=== PATIENT | female | born 1965 | race Caucasian/White ===

== ENCOUNTER 2019-01-20 09:39 | Outpatient (REF) | payer BC, OTHER, SELFPAY ==
[2019-01-20 19:37] LABS: ALT 32 U/L (12-78); AST 15 U/L (15-37); Albumin 3.5 g/dL (3.4-5.0); Alkaline Phosphatase 122 U/L (46-116); Anion Gap 12.5 mmol/L (3-11); BUN 13 mg/dL (7-18); Bilirubin, Total 0.4 mg/dL (0.2-1.0); CO2 23.5 mmol/L (21.0-32.0); CREATININE 0.69 mg/dL (0.55-1.02); Calcium 8.3 mg/dL (8.5-10.1); Chloride 104 mmol/L (98-107); Cholesterol 195 mg/dL (50-200); Glucose 208 mg/dL (70-100); HDL Cholesterol 35 mg/dL (40-60); LDL CHOLESTEROL 128 mg/dL (<100); Potassium 3.9 mmol/L (3.5-5.1); Sodium 140 mmol/L (136-145); Total Protein 6.8 g/dL (6.4-8.2); Triglyceride 113 mg/dL (30-150)
== END 2019-01-20 09:59 ==
LOC: NCHCN 09:39
PROVIDERS: PCP Physician Assistant; Visit Provider Nurse Practitioner Family
DX: E78.5 Hyperlipidemia, unspecified (principal); E11.9 Type 2 diabetes mellitus without complications
CPT/HCPCS: 80053; 80061; 83721

== ENCOUNTER 2019-04-23 09:39 | Outpatient (REF) | payer BC, OTHER, SELFPAY ==
[2019-04-23 19:33] LABS: ALT 35 U/L (14-59); AST 16 U/L (15-37); Albumin 3.5 g/dL (3.4-5.0); Alkaline Phosphatase 113 U/L (46-116); Anion Gap 12.6 mmol/L (3-11); BUN 10 mg/dL (7-18); Bilirubin, Total 0.5 mg/dL (0.2-1.0); CO2 23.4 mmol/L (21.0-32.0); Calcium 8.3 mg/dL (8.5-10.1); Calculated LDL 143 mg/dL; Chloride 105 mmol/L (98-107); Cholesterol 215 mg/dL (50-200); Glucose 211 mg/dL (70-100); HDL Cholesterol 37 mg/dL (40-60); Potassium 4.1 mmol/L (3.5-5.1); Sodium 141 mmol/L (136-145); Triglyceride 179 mg/dL (30-150)
== END 2019-04-23 09:59 ==
LOC: NCHCN 09:39
PROVIDERS: PCP Physician Assistant; Visit Provider Nurse Practitioner Family
DX: E78.5 Hyperlipidemia, unspecified (principal); E11.9 Type 2 diabetes mellitus without complications
CPT/HCPCS: 80053; 80061

== ENCOUNTER 2019-09-08 10:15 | Outpatient (REF) | payer BC, OTHER, SELFPAY ==
[2019-09-08 20:06] LABS: COMMENT (LAB VIEW ONLY) 106.98 mg/dL; Microalb ug/mg Crea 5.2 ug/mg Cr
== END 2019-09-08 10:35 ==
LOC: NCHCN 10:15
PROVIDERS: PCP Physician Assistant; Visit Provider Nurse Practitioner Family
DX: E11.9 Type 2 diabetes mellitus without complications (principal)
CPT/HCPCS: 82043; 82570

== ENCOUNTER 2020-08-11 21:08 | Outpatient (REF) | payer BC, OTHER, SELFPAY ==
[2020-08-11 19:29] LABS: Hemoglobin A1C 7.9 % (<5.7)
[2020-08-11 19:31] LABS: Albumin 3.7 g/dL (3.4-5.0); Anion Gap 9.5 mmol/L (3-11); BUN 13 mg/dL (7-18); CO2 24.5 mmol/L (21.0-32.0); CREATININE 0.71 mg/dL (0.55-1.02); Calcium 8.3 mg/dL (8.5-10.1); Calculated LDL 160 mg/dL (<100); Chloride 106 mmol/L (98-107); Cholesterol 225 mg/dL (<200); Glucose 217 mg/dL (74-106); HDL Cholesterol 40 mg/dL (40-60); Sodium 140 mmol/L (136-145); Triglyceride 127 mg/dL (<150)
[2020-08-11 19:47] LABS: PHOSPHORUS 3.1 mg/dL (2.6-4.7)
== END 2020-08-11 21:28 ==
LOC: NCHCN 21:08
PROVIDERS: PCP Physician Assistant; Visit Provider Nurse Practitioner Family
DX: E11.9 Type 2 diabetes mellitus without complications (principal); E78.5 Hyperlipidemia, unspecified
CPT/HCPCS: 80061; 80069; 83036

== ENCOUNTER 2020-11-24 21:39 | Outpatient (REF) | payer BC, OTHER, SELFPAY ==
[2020-11-25 11:29] LABS: COVID-19 RT-PCR UVMMC Result Positive (Negative)
== END 2020-11-24 21:40 | disposition home or self-care (01) ==
LOC: NCHCN 21:39
PROVIDERS: PCP Physician Assistant; Visit Provider Internal Medicine
DX: Z20.822 Contact with and (suspected) exposure to COVID-19 (principal); J06.9 Acute upper respiratory infection, unspecified
CPT/HCPCS: U0003

== ENCOUNTER 2020-11-28 09:58 | Outpatient (CLI) | payer BC, OTHER, SELFPAY ==
[2020-11-28 12:41] VITALS: BP 123/75; PULSE 85; RESP 20; TEMP 37.7; O2SAT 96
[2020-11-28] MEDS: Normal Saline Flush 10 ML SYR IVP (13:09)
[2020-11-28] MEDS: Normal Saline 500 ML 30 ML IV (13:10)
[2020-11-28 13:18] VITALS: BP 105/73; PULSE 76; RESP 18; TEMP 36.9; O2SAT 94
[2020-11-28 13:56] VITALS: BP 117/78; PULSE 75; RESP 18; TEMP 36.7; O2SAT 95
[2020-11-28 14:26] VITALS: BP 112/75; PULSE 72; RESP 16; TEMP 36.8; O2SAT 95
[2020-11-28 14:56] VITALS: BP 114/80; PULSE 76; RESP 16; TEMP 36.4; O2SAT 96
== END 2020-11-28 09:59 | disposition home or self-care (01) ==
LOC: INF 10:00
PROVIDERS: PCP Physician Assistant; Visit Provider Family Medicine
DX: U07.1 COVID-19 (principal)
CPT/HCPCS: 96365

== ENCOUNTER 2020-12-20 10:38 | Outpatient (REF) | payer BC, OTHER, SELFPAY ==
[2020-12-20 16:27] LABS: ALT 36 U/L (14-59); AST 17 U/L (15-37); Albumin 3.7 g/dL (3.4-5.0); Alkaline Phosphatase 90 U/L (46-116); Anion Gap 11.1 mmol/L (3-11); BUN 10 mg/dL (7-18); Bilirubin, Total 0.6 mg/dL (0.2-1.0); CO2 25.9 mmol/L (21.0-32.0); CREATININE 0.7 mg/dL (0.55-1.02); Calcium 8.7 mg/dL (8.5-10.1); Calculated LDL 109 mg/dL (<100); Chloride 108 mmol/L (98-107); Cholesterol 173 mg/dL (<200); Glucose 123 mg/dL (74-106); HDL Cholesterol 36 mg/dL (40-60); Sodium 145 mmol/L (136-145); TSH (W/Ref FT4) 0.81 uIU/mL (0.36-3.74); Triglyceride 144 mg/dL (<150)
[2020-12-20 17:02] LABS: Hemoglobin A1C 5.5 % (<5.7)
== END 2020-12-20 10:39 | disposition home or self-care (01) ==
LOC: NCHCN 10:38
PROVIDERS: PCP Physician Assistant; Visit Provider Nurse Practitioner Family
DX: I49.9 Cardiac arrhythmia, unspecified (principal); E11.9 Type 2 diabetes mellitus without complications; E78.5 Hyperlipidemia, unspecified
CPT/HCPCS: 80053; 80061; 83036; 84443

== ENCOUNTER 2023-01-08 14:09 | Outpatient (REF) | payer MEDICAID, SELFPAY ==
[2023-01-08 19:35] LABS: Hemoglobin A1C 5.2 % (<5.7)
[2023-01-08 19:48] LABS: ALT 24 U/L (14-59); AST 17 U/L (15-37); Albumin 3.1 g/dL (3.4-5.0); Alkaline Phosphatase 96 U/L (46-116); Anion Gap 8.5 mmol/L (3-11); BUN 13 mg/dL (7-18); Bilirubin, Total 0.3 mg/dL (0.2-1.0); CO2 27.5 mmol/L (21.0-32.0); COMMENT (LAB VIEW ONLY) 78.41 mg/dL; CREATININE 0.7 mg/dL (0.55-1.02); Calcium 8.5 mg/dL (8.5-10.1); Calculated LDL 91 mg/dL (<100); Chloride 107 mmol/L (98-107); Cholesterol 153 mg/dL (<200); Estimated GFR 99.57 (mL/min/1.73m2); Glucose 92 mg/dL (74-106); HDL Cholesterol 42 mg/dL (40-60); Microalb ug/mg Crea 8.4 ug/mg Cr; Potassium 3.8 mmol/L (3.5-5.1); Sodium 143 mmol/L (136-145); Total Protein 6.8 g/dL (6.4-8.2); Triglyceride 102 mg/dL (<150)
== END 2023-01-08 14:10 | disposition home or self-care (01) ==
LOC: NCHCN 14:09
PROVIDERS: PCP Physician Assistant; Visit Provider Nurse Practitioner Family
DX: E11.9 Type 2 diabetes mellitus without complications (principal); E78.5 Hyperlipidemia, unspecified
CPT/HCPCS: 80053; 80061; 82043; 82570; 83036

== ENCOUNTER 2023-04-22 19:37 | Outpatient (REF) | payer MEDICAID, SELFPAY ==
[2023-04-22 21:05] LABS: COMMENT (LAB VIEW ONLY) 122.52 mg/dL; Microalb ug/mg Crea 6.6 ug/mg Cr
== END 2023-04-22 19:38 | disposition home or self-care (01) ==
LOC: LBN 19:37
PROVIDERS: PCP Physician Assistant; Visit Provider Nurse Practitioner Family
DX: E11.9 Type 2 diabetes mellitus without complications (principal)
CPT/HCPCS: 82043; 82570

== ENCOUNTER 2024-01-29 09:28 | Outpatient (REF) | payer MEDICAID, SELFPAY ==
[2024-01-29 20:41] LABS: ALT 21 U/L (14-59); AST 17 U/L (15-37); Albumin 3.4 g/dL (3.4-5.0); Alkaline Phosphatase 107 U/L (46-116); Anion Gap 10.8 mmol/L (3-11); BUN 10 mg/dL (7-18); Bilirubin, Total 0.6 mg/dL (0.2-1.0); CO2 25.2 mmol/L (21.0-32.0); CREATININE 0.7 mg/dL (0.55-1.02); Calcium 8.5 mg/dL (8.5-10.1); Calculated LDL 50 mg/dL (<100); Chloride 106 mmol/L (98-107); Cholesterol 105 mg/dL (<200); Estimated GFR 98.95 (mL/min/1.73m2); Glucose 120 mg/dL (74-106); HDL Cholesterol 39 mg/dL (40-60); Sodium 142 mmol/L (136-145); Total Protein 7.1 g/dL (6.4-8.2); Triglyceride 84 mg/dL (<150)
== END 2024-01-29 09:29 | disposition home or self-care (01) ==
LOC: NCHCN 09:28
PROVIDERS: PCP Physician Assistant; Visit Provider Nurse Practitioner Family
DX: E78.5 Hyperlipidemia, unspecified (principal); E11.9 Type 2 diabetes mellitus without complications
CPT/HCPCS: 80053; 80061

== ENCOUNTER 2024-12-30 09:03 | Outpatient (REF) | payer MEDICAID, SELFPAY ==
[2024-12-30 20:18] LABS: ALT 20 U/L (14-59); AST 21 U/L (15-37); Albumin 3.5 g/dL (3.4-5.0); Alkaline Phosphatase 111 U/L (46-116); Anion Gap 8.8 mmol/L (3-11); BUN 10 mg/dL (7-18); Bilirubin, Total 0.5 mg/dL (0.2-1.0); CO2 25.2 mmol/L (21.0-32.0); CREATININE 0.6 mg/dL (0.55-1.02); Calcium 8.8 mg/dL (8.5-10.1); Calculated LDL 84 mg/dL (<100); Chloride 106 mmol/L (98-107); Cholesterol 156 mg/dL (<200); Estimated GFR 102.06 (mL/min/1.73m2); Glucose 125 mg/dL (74-106); HDL Cholesterol 43 mg/dL (>or=50); Potassium 3.9 mmol/L (3.5-5.1); Sodium 140 mmol/L (136-145); Total Protein 7.1 g/dL (6.4-8.2); Triglyceride 146 mg/dL (<150)
== END 2024-12-30 09:04 | disposition home or self-care (01) ==
LOC: NCHCN 09:03
PROVIDERS: PCP Physician Assistant; Visit Provider Nurse Practitioner Family
DX: E78.5 Hyperlipidemia, unspecified (principal)
CPT/HCPCS: 80053; 80061

== ENCOUNTER 2025-04-23 06:06 | Day surgery (SDC) | payer MEDICAID, SELFPAY ==
[2025-04-23 06:20] VITALS: BP 127/78; PULSE 77; RESP 16; TEMP 36.3; O2SAT 100
[2025-04-23] MEDS: Tropicam./Phenyleph. (1/2.5%) 5 ML BTL OS ×3 (06:40→06:52)
--- NOTE | 2025-04-23 07:06 | W.ANESPRE ---
General Info Date of Service Date Performed: 04/23/25 Height: 4 ft 11 in Weight: 79.1 kg Body Mass Index (BMI): 35.2 Surgical Procedure: Operation Date: 04/23/25 07:40 Proposed Procedure Side Surgeon p Cataract Extraction with IOL Implant Left Juan Carlos Burroughs MD Meds Allergies and Home Medications Allergies Allergy/AdvReac Type Severity Reaction Status Date / Time codeine Allergy vomiting Verified 04/23/25 06:32 metformin (From Glucophage) AdvReac Other (See Verified 04/23/25 06:32 Comment) Home Medication ?Medication ?Instructions ?Recorded aspirin 81 mg tablet,delayed 81 mg PO DAILY 11/28/20 release semaglutide 0.25 mg or 0.5 mg (2 See Rx Instructions .Route .COMPLEX 11/28/20 mg/1.5 mL) subcutaneous pen injector (Ozempic) lisinopril 2.5 mg tablet 2.5 mg PO DAILY 04/21/25 metformin 500 mg tablet 500 mg PO BIDWMEAL 04/21/25 atorvastatin 20 mg tablet 20 mg PO DAILY 04/22/25 Current Visit Medications: Current Medications Generic Name Dose Route Start Last Admin Trade Name Freq PRN Reason Stop Dose Admin Acetaminophen 1,000 mg 04/23/25 06:00 Acetaminophen 500 Mg Tab PO 05/23/25 05:59 Q4H PRN PRN Balanced Salt Solution 500 ml 04/23/25 06:00 Balanced Salt Soln.-Plus 500 Ml Bag OP 05/23/25 05:59 DIRECTED [facility] Miscellaneous Medication 0 ml 04/23/25 06:00 Prednisolone 1%, Moxifloxacin 0.5%, Bromfenac 0.09% 5.6ml Btl OS 05/23/25 05:59 DIRECTED [facility] Miscellaneous Medication 0 ml 04/23/25 06:00 04/23/25 06:52 Tropicam./Phenyleph. (1/2.5%) 5 Ml Btl OS 05/23/25 05:59 1 drp DIRECTED [facility] Administration Tetracaine HCl 0 ml 04/23/25 06:00 Tetracaine 0.5% 4 Ml Btl OS 05/23/25 05:59 DIRECTED [facility] PFSH Active Problems Active Problems: Problem Status Onset Code Cortical age-related cataract, left eye Acute H25.012 Nuclear age-related cataract, left eye Acute H25.12 Diabetes Chronic E11.9 Medical History Medical History HOSSEIN (obstructive sleep apnea) Snoring HLD (hyperlipidemia) Anxiety Pain in knee joint Obesity Surgical History Surgical History H/O breast biopsy H/O tubal ligation 1985 Hx of cholecystectomy History of LAVH Tobacco Smoking/Tobacco Use Status: Never Passive smoking exposure: Yes Alcohol Alcohol Intake: current Alcohol intake frequency: a few times a week Alcohol type: beer Substance Use Substance use: Never Substance use type: does not use Vital Signs and Lab Results Vital Signs Most Recent Vital Signs in EMR: Most Recent Vital Signs Temp Pulse Resp BP Pulse Ox 36.3 C L 77 16 127/78 100 04/23/25 06:20 04/23/25 06:20 04/23/25 06:20 04/23/25 06:20 04/23/25 06:20 Point of Care Results Point of Care Results: Finger Stick Blood Glucose 105 04/23/25 06:50 Anesthesia Assessment and Plan Anesthesia History Personal History: No History of Anesthesia Complications Family History: No Family History of Anesthesia Complications Exercise Tolerance Exercise Tolerance: Metabolic Equivalents>4 Pertinent Negatives Pertinent Negatives: No Symptoms of GERD Cardiac & Pulmonary Exam Cardiac Exam: Normal S1/S2 Heart Sounds Pulmonary Exam: Clear Bilateral Breath Sounds Implantable Cardiac Device Does patient have a Pacemaker or an ICD?: No Airway Exam Known Difficult Airway: No Mallampati Class: 2 Mouth Opening: Normal (> 3cm) Thyromental Distance: Greater than 3 cm Neck Range of Motion: Full ROM Neck Circumference: Normal Teeth Condition: Normal Dentition ASA Classification ASA Score: ASA 2 Emergency Case?: No NPO Status NPO Status: NPO Clears >2 hours, Solids >8 hours Anesthesia Plan Resuscitation Status: Full Code Anesthesia Technique: MAC Anesthesia Airway Planned: Natural Airway Monitors Used: Standard Monitors
[2025-04-23 07:08] VITALS: BMI 35.2
[2025-04-23] MEDS: Duovisc Viscoelastic System EACH 1 EACH (07:31)
[2025-04-23] MEDS: Lidocaine 1% Pres-Free 5 ML VIAL (07:31)
[2025-04-23] MEDS: Moxifloxacin-PF 1 MG/ML VIAL (07:32)
[2025-04-23] MEDS: Phenylephrine/Lidocaine (15/10) MG/ML 1 ML VIAL (07:33)
[2025-04-23] MEDS: Povidone-Iodine Ophth 30 ML BTL (07:34)
[2025-04-23] MEDS: Prednisolone 1%, Moxifloxacin 0.5%, Bromfenac 0.09% 5.6ML BTL OS (07:35)
[2025-04-23] MEDS: Balanced Salt Soln.-PLUS 500 ML BAG OP (07:35)
[2025-04-23] MEDS: Tetracaine 0.5% 4 ML BTL OS (07:36)
[2025-04-23 07:53] VITALS: BP 121/72; PULSE 77; RESP 16; TEMP 36.1; O2SAT 97
--- NOTE | 2025-04-23 07:56 | W.PM.DSUDISC ---
Date of service: 04/23/25 Discharge Plan Disposition Patient Disposition: Home Discharge Details Attending Provider: Juan Carlos Burroughs Primary Care Provider: Shey Evangelista Home Meds and New Rx's Prescriptions: No Action Ozempic 0.25 mg or 0.5 mg(2 mg/1.5 mL) Pen Injector See Rx Instructions .ROUTE .COMPLEX Rx Instructions: 0.25 mg subcutaneously weekly aspirin [Aspir-81] 81 mg Tablet,Delayed Release (Dr/Ec) 81 mg PO DAILY lisinopril 2.5 mg tablet 2.5 mg PO DAILY Patient Comments: TAKE 1 TABLET BY MOUTH ONCE DAILY FOR KIDNEY PROTECTION metformin 500 mg tablet 500 mg PO BIDWMEAL atorvastatin 20 mg tablet 20 mg PO DAILY Patient Comments: TAKE 1 TABLET BY MOUTH ONCE DAILY AT NIGHT Discharge Instructions Stand Alone Forms: DSU Post-Op Cataract, Jeramie Regan (DSU) Discharge Orders Discharge Orders: Discharge Order (Routine); Ordered 04/23/25 Ordered By: Juan Carlos Burroughs DS: Diagnosis Discharge Diagnosis (1) Cortical age-related cataract, left eye: Status: Resolved (2) Nuclear age-related cataract, left eye: Status: Resolved
--- NOTE | 2025-04-23 07:57 | ROE_ITS ---
Operative Note Operative Note PRE-OP DIAGNOSIS: Nuclear/cortical cataract, left eye POST-OP DIAGNOSIS: same PROCEDURE: Cataract extraction using phacoemulsification with intraocular lens implant, left eye SURGEON: Juan Carlos Burroughs ANESTHESIA TYPE: Local By Surgeon and MAC Refer to Anesthesia Record PATHOLOGY: none sent COMPLICATIONS: None Patient was transported to: same day Patient's condition: stable Implants: Abhijit Clareon [id number] Indications: Progressive decreased vision due to cataract, left eye Procedure Description: CATARACT SURGERY OPERATIVE REPORT PREOPERATIVE DIAGNOSIS: Nuclear/cortical cataract, left eye POSTOPERATIVE DIAGNOSIS: Same OPERATION: Cataract extraction using phacoemulsification with posterior chamber intraocular lens implant, left eye. IOL: IOL Electric Wheelchair Repairer/Model: Abhijit Clareon [id number] IOL Power: + 11.0 diopters IOL Serial Number: [id number] Optic Diameter: 6.0mm Haptic/Overall Diameter: 13.0mm PHACO INFO: Abhijit Centurion Vision System with OZil and Active Fluidics Cumulative Dispersed Energy (CDE): 3.66 seconds SURGEON: Juan Carlos Burroughs MD, OSMIN ANESTHESIA: Monitored Anesthesia Care (MAC), with local sub-tenon's anesthetic infiltration COMPLICATIONS: None SPECIMENS: None INDICATIONS FOR PROCEDURE: The patient is a 59-year-old lady with history of diminished visual acuity in her left eye secondary to the development of nuclear/cortical cataract. She has a history of high myopia and wears contact lenses. The option of cataract surgery was offered to the patient and she wished to proceed. See office notes for detailed information. PROCEDURE: The correct surgical eye was identified and marked as the left eye and the pupil was dilated in the preoperative area using mydriatics and cycloplegics. The dilated pupil size was 8.0 mm. The patient elected to proceed without oral sedation. The patient was brought to the operating room where cardiopulmonary monitoring was instituted and surgical time-out was performed, confirming the correct operative eye and IOL power. Topical anesthesia was administered and ophthalmic povidone-iodine 5% was instilled into the conjunctival fornices. The ayala-ocular area was prepped with Betadine 10% solution and draped in the usual sterile fashion for intraocular surgery, including an aperture drape. A Tegaderm transparent film dressing was cut in half and used to cover the lashes and lid margins. Care was taken to sequester the lashes and lid margins under the Tegaderm dressing. A lid speculum was placed between the lids of the operative eye and the Abhijit Lux[employer] Revalia operating microscope was maneuvered into position. Fatemeh scissors were then used to make a conjunctival buttonhole approximately 6mm posterior to the limbus in the inferonasal quadrant. Blunt dissection was carried out to expose bare sclera, and a blunt-tipped sub-tenon?s anesthesia cannula was introduced and passed posteriorly along the globe where non- preserved plain lidocaine was injected into posterior sub-Tenon?s space. A sideport knife was used to make a paracentesis port. Intraocular phenylephrine/lidocaine was injected into the anterior chamber. The anterior chamber was then filled with viscoelastic. A keratome knife was used construct a two-plane clear corneal tunnel extending 2.0mm into clear cornea. A flap was raised on the anterior capsule and capsulorhexis forceps were used to complete a continuous curvilinear capsulorhexis of 5.5 mm. Balanced salt solution was then used to perform cortical cleaving hydrodissection and nuclear hydrodelineation until the lens could be freely rotated within the capsular bag. The lens nucleus was then disassembled and removed within the capsular bag and iris plane using phacoemulsification. Residual cortical material was removed using the irrigation/aspiration handpiece. The posterior capsule was carefully polished to remove as much residual lens epithelial cells as safely possible. The capsular bag was then inflated and the anterior chamber deepened with viscoelastic. The lens implant described above was inserted into the capsular bag using the Abhijit Autonome Injector. A Kuglen hook was used to dial the IOL into position. Residual viscoelastic was then removed first from posterior to the IOL, then from the anterior chamber using the I/A handpiece. The lens implant was noted to center nicely within the capsular bag. The incisions were stromally hydrated, and the anterior chamber was reformed using BSS. Then 0.5cc of moxifloxacin 1.0mg/ml were injected into the capsular bag and anterior chamber. The incisions were checked with a Weck spear and found to be secure. Several drops of ophthalmic povidone-iodine 5% were then applied to the eye followed by two drops of combination steroid/NSAID/antibiotic solution. The drapes were removed and a clear plastic protective eye shield was placed over the eye. The patient was then returned to Same Day Surgery in stable condition. Date of Procedure: 04/23/25
--- NOTE | 2025-04-23 08:03 | W.ANESPOSTOP ---
Postoperative Evaluation Date, Time and Location Date Performed: 04/23/25 Time Performed: 08:03 Patient Location: Day Surgery Unit Vital Signs Most Recent Imported Vital Signs: Most Recent Vital Signs Temp Pulse Resp BP Pulse Ox 36.1 C L 77 16 121/72 97 04/23/25 07:53 04/23/25 07:53 04/23/25 07:53 04/23/25 07:53 04/23/25 07:53 Pain Score Most Recent Pain Score: Most Recent Pain Score Pain Level 0 04/23/25 07:53 Assessment Mental Status: Awake (Alert & Oriented to Patient Baseline) Airway and Respiratory Function: Patent airway with normal (patient baseline) respiratory exam Cardiovascular Function: Hemodynamically Stable Hydration Status: Adequately Hydrated Nausea & Vomiting: No Nausea or Vomiting Pain: Pt. Denies Any Pain Peripheral Nerve Block: Patient did not receive a nerve block
== END 2025-04-23 08:16 | disposition home or self-care (01) ==
LOC: SUR 06:08
PROVIDERS: PCP Nurse Practitioner Family; Visit Provider Ophthalmology
PROC: (CPT 66984; principal; 2025-04-23 07:30)
DX: H25.012 Cortical age-related cataract, left eye (principal); H25.12 Age-related nuclear cataract, left eye
CPT/HCPCS: 66984; 00123; V2632; J2003

== ENCOUNTER 2025-05-07 11:01 | Day surgery (SDC) | payer MEDICAID, SELFPAY ==
[2025-05-07] MEDS: Tropicam./Phenyleph. (1/2.5%) 5 ML BTL OD ×3 (11:23→11:33)
[2025-05-07 11:24] VITALS: BP 127/82; PULSE 86; RESP 16; TEMP 36.4; O2SAT 97
[2025-05-07 11:39] VITALS: BMI 34.8
--- NOTE | 2025-05-07 11:39 | ANES.PREOP_ITS ---
General Info Date of Service Date Performed: 05/07/25 Height: 4 ft 11 in Weight: 78.2 kg Body Mass Index (BMI): 34.8 Surgical Procedure: Operation Date: 05/07/25 13:40 Proposed Procedure Side Surgeon p Cataract Extraction with IOL Implant Right Juan Carlos Burroughs MD Meds Allergies and Home Medications Allergies Allergy/AdvReac Type Severity Reaction Status Date / Time codeine Allergy vomiting Verified 05/07/25 11:20 metformin (From Glucophage) AdvReac Other (See Verified 05/07/25 11:20 Comment) Home Medication ?Medication ?Instructions ?Recorded aspirin 81 mg tablet,delayed 81 mg PO DAILY 11/28/20 release semaglutide 0.25 mg or 0.5 mg (2 See Rx Instructions . Route .COMPLEX 11/28/20 mg/1.5 mL) subcutaneous pen injector (Ozempic) lisinopril 2.5 mg tablet 2.5 mg PO DAILY 04/21/25 metformin 500 mg tablet 500 mg PO BIDWMEAL 04/21/25 atorvastatin 20 mg tablet 20 mg PO DAILY 04/22/25 Current Visit Medications: Current Medications Generic Name Dose Route Start Last Admin Trade Name Freq PRN Reason Stop Dose Admin Acetaminophen 1,000 mg 05/07/25 06:00 Acetaminophen 500 Mg Tab PO 06/06/25 05:59 Q4H PRN PRN Balanced Salt Solution 500 ml 05/07/25 06:00 Balanced Salt Soln.-Plus 500 Ml Bag OP 06/06/25 05:59 DIRECTED [facility] Miscellaneous Medication 0 ml 05/07/25 06:00 Prednisolone 1%, Moxifloxacin 0.5%, Bromfenac 0.09% 5.6ml Btl OD 06/06/25 05:59 DIRECTED [facility] Miscellaneous Medication 0 ml 05/07/25 06:00 05/07/25 11:33 Tropicam./Phenyleph. (1/2.5%) 5 Ml Btl OD 06/06/25 05:59 1 drp DIRECTED [facility] Administration Tetracaine HCl 0 ml 05/07/25 06:00 Tetracaine 0.5% 4 Ml Btl OD 06/06/25 05:59 DIRECTED [facility] PFSH Active Problems Active Problems: Problem Status Onset Code Cortical age-related cataract, right eye Acute H25.011 Nuclear age-related cataract, right eye Acute H25.11 Cortical age-related cataract, left eye Resolved H25.012 Nuclear age-related cataract, left eye Resolved H25.12 Diabetes Chronic E11.9 Medical History Medical History HOSSEIN (obstructive sleep apnea) Snoring HLD (hyperlipidemia) Anxiety Pain in knee joint Obesity Surgical History Surgical History H/O breast biopsy H/O tubal ligation 1985 Hx of cholecystectomy History of LAVH Tobacco Smoking/Tobacco Use Status: Never Passive smoking exposure: Yes Alcohol Alcohol Intake: current Alcohol intake frequency: a few times a week Alcohol type: beer Substance Use Substance use: Never Substance use type: does not use Vital Signs and Lab Results Vital Signs Most Recent Vital Signs in EMR: Most Recent Vital Signs Temp Pulse Resp BP Pulse Ox 36.4 C L 86 16 127/82 97 05/07/25 11:24 05/07/25 11:24 05/07/25 11:24 05/07/25 11:24 05/07/25 11:24 Point of Care Results Point of Care Results: Finger Stick Blood Glucose 101 05/07/25 11:14 Anesthesia Assessment and Plan Anesthesia History Personal History: No History of Anesthesia Complications Family History: No Family History of Anesthesia Complications Exercise Tolerance Exercise Tolerance: Metabolic Equivalents>4 Pertinent Negatives Pertinent Negatives: No Symptoms of GERD Cardiac & Pulmonary Exam Cardiac Exam: Normal S1/S2 Heart Sounds Pulmonary Exam: Clear Bilateral Breath Sounds Implantable Cardiac Device Does patient have a Pacemaker or an ICD?: No Airway Exam Known Difficult Airway: No Mallampati Class: 2 Mouth Opening: Normal (> 3cm) Thyromental Distance: Greater than 3 cm Neck Range of Motion: Full ROM Neck Circumference: Normal Teeth Condition: Normal Dentition ASA Classification ASA Score: ASA 2 Emergency Case?: No NPO Status NPO Status: NPO Clears >2 hours, Solids >8 hours Anesthesia Plan Resuscitation Status: Full Code Anesthesia Technique: MAC Anesthesia Airway Planned: Natural Airway Monitors Used: Standard Monitors Preoperative Comments:: No MKO
[2025-05-07] MEDS: Duovisc Viscoelastic System EACH 1 EACH (11:52)
[2025-05-07] MEDS: Lidocaine 1% Pres-Free 5 ML VIAL (11:53)
[2025-05-07] MEDS: Moxifloxacin-PF 1 MG/ML VIAL (11:53)
[2025-05-07] MEDS: Phenylephrine/Lidocaine (15/10) MG/ML 1 ML VIAL (11:54)
[2025-05-07] MEDS: Povidone-Iodine Ophth 30 ML BTL (11:54)
[2025-05-07] MEDS: Prednisolone 1%, Moxifloxacin 0.5%, Bromfenac 0.09% 5.6ML BTL OD (11:55)
[2025-05-07] MEDS: Balanced Salt Soln.-PLUS 500 ML BAG OP (11:55)
[2025-05-07] MEDS: Tetracaine 0.5% 4 ML BTL OD (11:56)
[2025-05-07 12:14] VITALS: BP 116/66; PULSE 84; RESP 16; TEMP 36.1; O2SAT 100
--- NOTE | 2025-05-07 12:14 | W.PM.DSUDISC ---
Date of service: 05/07/25 Discharge Plan Disposition Patient Disposition: Home Discharge Details Attending Provider: Juan Carlos Burroughs Primary Care Provider: Shey Evangelista Home Meds and New Rx's Prescriptions: No Action Ozempic 0.25 mg or 0.5 mg(2 mg/1.5 mL) Pen Injector See Rx Instructions .ROUTE .COMPLEX Rx Instructions: 0.25 mg subcutaneously weekly aspirin [Aspir-81] 81 mg Tablet,Delayed Release (Dr/Ec) 81 mg PO DAILY lisinopril 2.5 mg tablet 2.5 mg PO DAILY Patient Comments: TAKE 1 TABLET BY MOUTH ONCE DAILY FOR KIDNEY PROTECTION metformin 500 mg tablet 500 mg PO BIDWMEAL atorvastatin 20 mg tablet 20 mg PO DAILY Patient Comments: TAKE 1 TABLET BY MOUTH ONCE DAILY AT NIGHT Discharge Instructions Stand Alone Forms: DSU Post-Op Cataract, Jeramie Regan (DSU) Discharge Orders Discharge Orders: Discharge Order (Routine); Ordered 05/07/25 Ordered By: Juan Carlos Burroughs DS: Diagnosis Discharge Diagnosis (1) Cortical age-related cataract, right eye: Status: Resolved (2) Nuclear age-related cataract, right eye: Status: Resolved
--- NOTE | 2025-05-07 12:15 | W.PM.OP ---
Operative Note Operative Note PRE-OP DIAGNOSIS: Nuclear/cortical cataract, right eye POST-OP DIAGNOSIS: same PROCEDURE: Cataract extraction using phacoemulsification with intraocular lens implant, right eye SURGEON: Jaun Carlos Burroughs ANESTHESIA TYPE: Local By Surgeon and MAC Refer to Anesthesia Record ESTIMATED BLOOD LOSS: 0 PATHOLOGY: none sent COMPLICATIONS: None Patient was transported to: same day Patient's condition: stable Implants: Abhijit Clareon [id number] Indications: Progressive decreased vision due to cataract, right eye Procedure Description: CATARACT SURGERY OPERATIVE REPORT PREOPERATIVE DIAGNOSIS: Nuclear/cortical cataract, right eye POSTOPERATIVE DIAGNOSIS: Same OPERATION: Cataract extraction using phacoemulsification with posterior chamber intraocular lens implant, right eye. IOL: IOL Bilingual Medical Receptionist/Model: Abhijit Clareon [id number] IOL Power: + 12.0 diopters IOL Serial Number: [id number] Optic Diameter: 6.0mm Haptic/Overall Diameter: 13.0mm PHACO INFO: Abhijit Centurion Vision System with OZil and Active Fluidics Cumulative Dispersed Energy (CDE): 5.97 seconds SURGEON: Juan Carlos Burroughs MD, OSMIN ANESTHESIA: Monitored Anesthesia Care (MAC), with local sub-tenon's anesthetic infiltration COMPLICATIONS: None SPECIMENS: None INDICATIONS FOR PROCEDURE: The patient is a 59-year-old lady with history of myopia who has developed significant bilateral nuclear/cortical cataract. She has already undergone cataract surgery in the left eye and is doing well postoperatively. She now presents for cataract surgery in the right eye. See office note for detailed information. PROCEDURE: The correct surgical eye was identified and marked as the right eye and the pupil was dilated in the preoperative area using mydriatics and cycloplegics. The dilated pupil size was 8.0 mm. The patient elected to proceed without oral sedation. The patient was brought to the operating room where cardiopulmonary monitoring was instituted and surgical time-out was performed, confirming the correct operative eye and IOL power. Topical anesthesia was administered and ophthalmic povidone-iodine 5% was instilled into the conjunctival fornices. The ayala-ocular area was prepped with Betadine 10% solution and draped in the usual sterile fashion for intraocular surgery, including an aperture drape. A Tegaderm transparent film dressing was cut in half and used to cover the lashes and lid margins. Care was taken to sequester the lashes and lid margins under the Tegaderm dressing. A lid speculum was placed between the lids of the operative eye and the Abhijit [employer] Revalia operating microscope was maneuvered into position. Fatemeh scissors were then used to make a conjunctival buttonhole approximately 6mm posterior to the limbus in the inferonasal quadrant. Blunt dissection was carried out to expose bare sclera, and a blunt-tipped sub-tenon?s anesthesia cannula was introduced and passed posteriorly along the globe where non-preserved plain lidocaine was injected into posterior sub-Tenon?s space. A sideport knife was used to make a paracentesis port. Intraocular phenylephrine/lidocaine was injected into the anterior chamber. The anterior chamber was then filled with viscoelastic. A keratome knife was used to construct a two--plane clear corneal tunnel extending 2.0mm into clear cornea. A flap was raised on the anterior capsule and capsulorhexis forceps were used to complete a continuous curvilinear capsulorhexis of 5.5 mm. Balanced salt solution was then used to perform cortical cleaving hydrodissection and nuclear hydrodelineation until the lens could be freely rotated within the capsular bag. The lens nucleus was then disassembled and removed within the capsular bag and iris plane using phacoemulsification. Residual cortical material was removed using the I/A handpiece. The posterior capsule was carefully polished to remove as much residual lens epithelial cells as safely possible. The capsular bag was then inflated and the anterior chamber deepened with cohesive viscoelastic. The lens implant described above was inserted into the capsular bag using the Abhijit Autonome Injector. A Kuglen hook was used to dial the IOL into position. Residual viscoelastic was then removed first from posterior to the IOL, then from the anterior chamber using the I/A handpiece. The lens implant was noted to center nicely within the capsular bag. The incisions were stromally hydrated, and the anterior chamber was reformed using BSS. Then 0.5cc of moxifloxacin 1.0mg/ml were injected into the capsular bag and anterior chamber. The incisions were checked with a Weck spear and found to be secure. Several drops of ophthalmic povidone-iodine 5% were then applied to the eye followed by two drops of combination steroid/NSAID/antibiotic solution. The drapes were removed and a clear plastic protective eye shield was placed over the eye. The patient was then returned to Same Day Surgery in stable condition. Date of Procedure: 05/07/25
--- NOTE | 2025-05-07 14:59 | W.ANESPOSTOP ---
Postoperative Evaluation Date, Time and Location Date Performed: 05/07/25 Time Performed: 12:16 Patient Location: Day Surgery Unit Vital Signs Most Recent Imported Vital Signs: Most Recent Vital Signs Temp Pulse Resp BP Pulse Ox 36.1 C L 84 16 116/66 100 05/07/25 12:14 05/07/25 12:14 05/07/25 12:14 05/07/25 12:14 05/07/25 12:14 Pain Score Most Recent Pain Score: Most Recent Pain Score Pain Level 0 05/07/25 12:14 Assessment Mental Status: Awake (Alert & Oriented to Patient Baseline) Airway and Respiratory Function: Patent airway with normal (patient baseline) respiratory exam Cardiovascular Function: Hemodynamically Stable Hydration Status: Adequately Hydrated Nausea & Vomiting: No Nausea or Vomiting Pain: Pt. Denies Any Pain Peripheral Nerve Block: Other (Local by Dr. Burroughs)
== END 2025-05-07 12:40 | disposition home or self-care (01) ==
PROVIDERS: PCP Nurse Practitioner Family; Visit Provider Ophthalmology
PROC: (CPT 66984; principal; 2025-05-07 13:30)
DX: H25.011 Cortical age-related cataract, right eye (principal); H25.11 Age-related nuclear cataract, right eye; Z98.42 Cataract extraction status, left eye
CPT/HCPCS: 66984; 00123; V2632; J2003